=== PATIENT | male | born 1990 | race Caucasian/White ===

== ENCOUNTER 2020-07-14 23:33 | Emergency (ER) | payer OTHER ==
[~2020-07-14] VITALS: Ht 177.8 cm; Wt 99.8 kg
[2020-07-15 00:23] LABS: URINE BILIRUBIN NEGATIVE (Negative); URINE BLOOD NEGATIVE (Negative); URINE CLARITY CLEAR; URINE COLOR YELLOW; URINE GLUCOSE-RANDOM NEGATIVE (Negative); URINE KETONES NEGATIVE (Negative); URINE LEUKOCYTES-REFLEX NEGATIVE (Negative); URINE NITRITE-REFLEX NEGATIVE (Negative); URINE PROTEIN NEGATIVE (Negative); URINE UROBILINOGEN 0.2 E.U./dl (0.2-1.0)
[2020-07-15 00:33] LABS: AMP/METHAMP Negative (Negative); BARBITURATES Negative (Negative); BENZODIAZEPINES Negative (Negative); COCAINE Negative (Negative); METHADONE Negative (Negative); OPIATES Negative (Negative); PCP Negative (Negative); THC POSITIVE (Negative)
[2020-07-15 01:18] LABS: CALCIUM 8.5 mg/dL (8.5-10.1); CREATININE 0.8 mg/dL (0.6-1.3)
[2020-07-15 01:21] LABS: ABSOLUTE BASOPHILS 0.1 thou/uL (0.0-0.2); ABSOLUTE EOSINOPHILS 0.3 thou/uL (0.0-0.7); ABSOLUTE LYMPHOCYTES 3.6 thou/uL (0.8-5.3); ABSOLUTE NEUTROPHILS 3.1 thou/uL (1.6-8.1); BASOPHILS 1.1 %; EOSINOPHILS 3.2 %; HEMATOCRIT 38.4 % (42.0-52.0); HEMOGLOBIN 13.2 gm/dL (14.0-18.0); LYMPHOCYTES 44.4 %; MCH 30.7 pg (26.0-34.0); MCHC 34.4 g/dL (28.0-37.0); MCV 89.2 fL (80.0-100.0); MONOCYTES 12.7 %; MPV 8.7 fl. (7.2-11.1); NUCLEATED RBCS 0 /100WBC; PLATELET COUNT* 245 thou/uL (150-400); POLYS 38.6 %; RBC 4.31 mil/uL (4.50-6.00); RDW-CV 13.2 % (10.5-14.5); WBC 8.2 thou/uL (4.0-11.0)
[2020-07-15 01:22] LABS: ALBUMIN 3.1 g/dL (3.4-5.0); MAGNESIUM 2.1 mg/dL (1.8-2.4); TOTAL BILIRUBIN 0.2 mg/dL (<0.1-1.0); TOTAL PROTEIN 6.5 g/dL (6.4-8.2)
[2020-07-15] MEDS ORDERED: HYDROCODON-ACE1 EAC8 PO (03:36)
[2020-07-15] MEDS ORDERED: ZOFRAN ODT4 MG PO (03:36)
[2020-07-15 03:48] VITALS: BP 124/72
== END 2020-07-15 03:51 | disposition home or self-care (01) ==
LOC: M.ERS 23:33
PROVIDERS: Emergency Medicine
DX: S49.81XA Other specified injuries of right shoulder and upper arm, initial encounter (principal); R10.32 Left lower quadrant pain; Z88.0 Allergy status to penicillin; X50.9XXA Other and unspecified overexertion or strenuous movements or postures, initial encounter; Y93.89 Activity, other specified; Y92.89 Other specified places as the place of occurrence of the external cause; Y99.8 Other external cause status

== ENCOUNTER 2020-08-09 15:39 | Emergency (ER) | payer OTHER ==
[~2020-08-09] VITALS: Ht 177.8 cm; Wt 108.9 kg
[~2020-08-09 15:39] MED LIST: HYDROCODON-ACE1 EAC8 PO; ZOFRAN ODT4 MG PO
[2020-08-09] MEDS ORDERED: IBUPROFEN 600600 M1 PO (16:42)
[2020-08-09] MEDS ORDERED: NORCO5 PO ×2 (16:42→16:46)
[2020-08-09 16:51] VITALS: BP 127/63
== END 2020-08-09 16:53 | disposition home or self-care (01) ==
LOC: M.ERS 15:39
DX: M25.511 Pain in right shoulder (principal); Z88.1 Allergy status to other antibiotic agents; Z88.0 Allergy status to penicillin